=== PATIENT | female | born 1960 | race Asian ===

== ENCOUNTER 2021-05-07 08:09 | Emergency (ER) | payer BC ==
--- OUTSIDE RECORDS SUMMARY | 2021-05-07 08:27 | EXTERNAL MEDICAL SUMMARY RPT | Continuity of Care Document ---
:1960 Demographics Phone Unavailable Preferred Language Unknown Marital Status Unknown Adventism Affiliation Unknown Race Unknown Ethnic Group Unknown Author Organization [facility] Address [address] [id number] Phone Allergies Encounters Medications Problems Results
--- NOTE | 2021-05-07 08:38 | ED Physician Documentation ---
PD HPI ABD PAIN - Stated complaint Stated Complaint: ABD PX - Chief complaint Chief Complaint: Abd Pain - History obtained from History obtained from: Patient - Additional information Additional information: 60-year-old woman with history of anemia, otherwise very healthy with no history of abdominal surgeries has had a weeks worth of intermittent nonradiating epigastric pain. It starts about an hour after eating and last several hours. It is not associated with nausea. She has had a single episode of diarrhea daily with this. Review of Systems Ten Systems: 10 systems reviewed and negative Constitutional: denies: Fever, Chills Nose: denies: Rhinorrhea / runny nose, Congestion Cardiac: denies: Chest pain / pressure, Palpitations Respiratory: denies: Dyspnea, Cough PD PAST MEDICAL HISTORY - Past Medical History Past Medical History: Yes Cardiovascular: None Respiratory: None Neuro: Migraines Endocrine/Autoimmune: None GI: None [employer]: None : None HEENT: None Psych: None Musculoskeletal: None Derm: None - Past Surgical History Past Surgical History: No - Present Medications Home Medications: Ambulatory Orders Medication Instructions Recorded Confirmed Omeprazole 40 mg PO DAILY #30 cap 05/07/21 - Allergies Allergies/Adverse Reactions: Allergies Allergy/AdvReac Type Severity Reaction Status Date / Time aspirin AdvReac Emesis Verified 05/07/21 08:14 - Social History Does the pt smoke?: No Smoking Status: Former smoker Does the pt drink ETOH?: No Does the pt have substance abuse?: No - Immunizations Immunizations are current?: Yes PD ED PE NORMAL - Vitals Vital signs reviewed: Yes - General General: Alert and oriented X 3, No acute distress - HEENT HEENT: PERRL, EOMI - Neck Neck: Supple, no meningeal sign, No bony TTP - Cardiac Cardiac: RRR, No murmur - Respiratory Respiratory: No respiratory distress, Clear bilaterally - Abdomen Abdomen: Normal bowel sounds, Soft, Non tender - Back Back: No CVA TTP, No spinal TTP - Derm Derm: Normal color, Warm and dry - Extremities Extremities: No edema, No calf tenderness / cord - Neuro Neuro: Alert and oriented X 3, Normal speech - Psych Psych: Normal mood, Normal affect Results - Vitals Vitals: Vital Signs - 24 hr 05/07/21 08:15 Temperature 36.4 C L Heart Rate 78 Respiratory 16 Rate Blood Pressure 147/104 H O2 Saturation 100 Oxygen O2 Source Room air - Labs Labs: Laboratory Tests 05/07/21 05/07/21 05/07/21 08:43 08:43 08:43 WBC 8.7 RBC 5.07 Hgb 14.5 Hct 44.4 MCV 87.6 MCH 28.6 MCHC 32.7 RDW 12.5 Plt Count 316 MPV 8.8 Neut # (Auto) 5.1 Lymph # (Auto) 2.7 [place] # (Auto) 0.6 Eos # (Auto) 0.2 Baso # (Auto) 0.1 Absolute Nucleated RBC 0.00 Nucleated RBC % 0.0 Sodium 140 Potassium 4.0 Chloride 106 Carbon Dioxide 26 Anion Gap 8.0 BUN 14 Creatinine 0.7 Estimated GFR (MDRD) 86 L Glucose 108 H Calcium 9.7 Total Bilirubin 0.7 AST 37 ALT 47 Alkaline Phosphatase 87 Total Protein 7.2 Albumin 4.0 Globulin 3.2 Albumin/Globulin Ratio 1.3 Triglycerides 182 H Cholesterol 241 H LDL Cholesterol, Calc 150 H VLDL Cholesterol 36 HDL Cholesterol 55 L LDL/HDL Ratio 2.7 Cholesterol/HDL Ratio 4.4 Lipase 21 L TSH 3.32 PD MEDICAL DECISION MAKING - ED course ED course: 60-year-old woman presents with postprandial epigastric pain, she is pain-free right now and not tender. Is been going on for a week. The recurrent postprandial nature suggest against ACS. She has been getting some relief with Pepcid suggesting PUD or gastritis. Biliary etiology is also considered and we will do an ultrasound. Of note the patient is quite fearful of needles and has not had blood work done in about 6 years and agreed to do TSH and fasting lipid panel although inconsequential to today's work-up given how fearful she is of needles. Departure - Departure Disposition: 01 Home, Self Care Clinical Impression: Gastritis Qualifiers: Gastritis type: unspecified gastritis Chronicity: acute Gastritis bleeding: without bleeding Qualified Code(s): K29.00 - Acute gastritis without bleeding Condition: Good Record reviewed to determine appropriate education?: Yes Instructions: ED PUD Vs Gastritis Prescriptions: Omeprazole 40 mg PO DAILY #30 cap Comments: No evidence of gallstones, therefore by process of elimination based on the symptoms you are pain is likely related to gastritis or peptic ulcer disease. Follow-up with your doctor, return for new or worsening symptoms. The medication I am prescribing should help but it may take a few days to kick in so you can continue Pepcid and [id number] antacids until then.
[2021-05-07 08:48] LABS: BASOPHILS # (AUTO) 0.1 10^3/uL (0.0-0.1); BASOPHILS % (AUTO) 0.9 %; EOSINOPHILS # (AUTO) 0.2 10^3/uL (0.0-0.7); EOSINOPHILS % (AUTO) 2.2 %; HCT - HEMATOCRIT 44.4 % (37.0-47.0); HGB - HEMOGLOBIN 14.5 g/dL (12.0-16.0); LYMPHOCYTES # (AUTO) 2.7 10^3/uL (1.5-3.5); LYMPHOCYTES % (AUTO) 31.5 %; MEAN CORPUSCULAR HEMOGLOBIN 28.6 pg (27.0-31.0); MEAN CORPUSCULAR HGB CONC 32.7 g/dL (32.0-36.0); MEAN CORPUSCULAR VOLUME 87.6 fL (81.0-99.0); MEAN PLATELET VOLUME 8.8 fL (7.9-10.8); MONOCYTES # (AUTO) 0.6 10^3/uL (0.0-1.0); MONOCYTES % (AUTO) 6.3 %; NEUTROPHILS # (AUTO) 5.1 10^3/uL (1.5-6.6); NEUTROPHILS % (AUTO) 58.6 %; PLT - PLATELET COUNT 316 10^3/uL (130-450); RED BLOOD COUNT 5.07 10^6/uL (4.20-5.40); RED CELL DISTRIBUTION WIDTH 12.5 % (12.0-15.0); WHITE BLOOD COUNT 8.7 x10^3/uL (4.8-10.8)
[2021-05-07 09:09] LABS: ALBUMIN/GLOBULIN RATIO 1.3 (1.0-2.2); ALKALINE PHOSPHATASE 87 IU/L (42-121); ALT ALANINE AMINOTRANSFERASE 47 IU/L (10-60); AST ASPARTATE AMINOTRANSFERASE 37 IU/L (10-42); BILIRUBIN,TOTAL 0.7 mg/dL (0.2-1.0); BUN - BLOOD UREA NITROGEN 14 mg/dL (6-20); CALCIUM 9.7 mg/dL (8.5-10.3); CARBON DIOXIDE - CO2 26 mmol/L (21-32); CHLORIDE 106 mmol/L (101-111); CHOL/HDL RATIO 4.4 (<4.4); CHOLESTEROL 241 mg/dL; CREATININE 0.7 mg/dL (0.4-1.0); GFR - MDRD 86 (>89); GLUCOSE 108 mg/dL (70-100); HDL CHOLESTEROL 55 mg/dL; LDL CHOLESTEROL,CALCULATED 150 mg/dL; LDL/HDL RATIO 2.7 (<4.4); LIPASE 21 U/L (22-51); SODIUM 140 mmol/L (135-145); TOTAL PROTEIN 7.2 g/dL (6.7-8.2); TRIGLYCERIDES 182 mg/dL; VLDL CHOLESTEROL 36 mg/dL
[2021-05-07 10:42] VITALS: BP 138/85
--- NOTE | 2021-05-07 10:55 | Ultrasound Report ---
PROCEDURE: Abdomen Limited INDICATIONS: Epigastric abdominal pain TECHNIQUE: Real-time focused scanning was performed of the abdomen, with image documentation. COMPARISON: 07/10/2015 CT abdomen and pelvis FINDINGS: There is diffusely increased hepatic parenchymal echogenicity which indicates hepatic steatosis. Coar sening of the hepatic echo texture is nonspecific but suggests a diffuse hepatocellular process. Ther e is no focal hepatic mass. Normally distended gallbladder without wall thickening or pericholecystic fluid. No shadowing gallsto dre or sludge. Normal caliber intrahepatic and extra hepatic biliary ducts. Visualized portions of the pancreas are normal. Right kidney is unremarkable without shadowing calculus or hydronephrosis. IMPRESSION: Increased hepatic parenchymal echogenicity and coarsened hepatic echotexture. These findings likely r epresent steatosis and perhaps steatohepatitis. Another diffuse hepatocellular process such as viral hepatitis would need clinical exclusion, as the imaging appearance would be similar. Reviewed by: Blair Fletcher MD on 05/07/2021 10:54 AM PDT Approved by: Blair Fletcher MD on 05/07/2021 10:54 AM PDT Station ID: [id number]
== END 2021-05-07 10:46 | disposition home or self-care (01) ==
LOC: ED 08:09
DX: K29.00 Acute gastritis without bleeding (principal); Z87.891 Personal history of nicotine dependence
CPT/HCPCS: 36415; 80053; 80061; 83690; 83721; 84443; 85025; 99284